=== PATIENT | female | born 1950 | race Caucasian/White ===

== ENCOUNTER 2017-03-27 19:14 | Inpatient (IN) | payer OTHER ==
[~2017-03-27] VITALS: Ht 152.4 cm; Wt 59.5 kg
[2017-03-27] MEDS ORDERED: GLIPIZIDE10 M2 PO (21:06)
[2017-03-27] MEDS ORDERED: NIFEDIPINE30 MG PO (21:06)
[2017-03-27] MEDS ORDERED: HYDRALAZINE HCL25 MG PO (21:06)
[2017-03-27] MEDS ORDERED: VITD PO (21:06)
[2017-03-27] MEDS ORDERED: OMEPRAZOLE20 M3 PO (21:07)
[2017-03-27] MEDS ORDERED: LASIX40 MG PO (21:07)
[2017-03-27] MEDS ORDERED: PERCOCET1 TA5 PO (21:07)
[2017-03-27] MEDS ORDERED: BACLOFEN10 MG PO (21:07)
[2017-03-27] MEDS ORDERED: JANUVIA100 M1 PO (21:07)
[2017-03-27 21:08] LABS: BASOPHIL % 0.1 % (0-2); PLATELET COUNT 241 x10^3mcL (130-400); RED CELL DISTRIBUTION WIDTH 14.7 % (11.5-14.5)
[2017-03-27] MEDS ORDERED: AURYXIA1 GM PO (21:08)
[2017-03-27] MEDS ORDERED: CLOPIDOGREL75 M1 PO (21:08)
[2017-03-27] MEDS ORDERED: ASPIR 8181 MG PO (21:08)
[2017-03-27] MEDS ORDERED: LYRICA50 M1 PO (21:08)
[2017-03-27] MEDS ORDERED: CARVEDILOL12.5 M1 PO (21:08)
[2017-03-27 21:15] LABS: CALCIUM 8.4 mg/dL (8.5-10.1); CARBON DIOXIDE 28.7 mmol/L (21-32); CREATININE SERUM 3.6 mg/dL (0.6-1.0); POTASSIUM SERUM 4.4 mmol/L (3.5-5.1)
[2017-03-27 21:26] LABS: BILIRUBIN TOTAL 0.4 mg/dL (0.20-1.00); T4(THYROXINE) 7.6 ug/dL (4.7-13.3); TOTAL PROTEIN, SERUM 7.3 g/dL (6.4-8.2)
[2017-03-27 21:30] LABS: ALBUMIN 3.3 g/dL (3.4-5.0); CK-MB < 0.5 ng/mL (0-3.6); CREATINE KINASE 34 U/L (26-192)
[2017-03-27 21:58] LABS: AMPHETAMINE QUAL UR NONE DETECTED (NEG <=1000)
[2017-03-27 22:08] VITALS: BP 143/56
[2017-03-27 22:13] LABS: CHOLESTEROL/HDL RATIO 7.2; MAGNESIUM 2.2 mg/dL (1.8-2.4); PHOSPHOROUS 3.1 mg/dL (2.5-4.9)
[2017-03-28] VITALS (10 sets, daily range): BP systolic 89–199; BP diastolic 33–85; Ht 152.4 cm; Wt 59.5 kg
[2017-03-28 07:29] LABS: PLATELET COUNT 198 x10^3mcL (130-400)
[2017-03-28 07:42] LABS: CALCIUM 8.2 mg/dL (8.5-10.1); CARBON DIOXIDE 27.5 mmol/L (21-32); CREATININE SERUM 3.7 mg/dL (0.6-1.0); POTASSIUM SERUM 4.9 mmol/L (3.5-5.1)
[2017-03-28 07:50] LABS: RED CELL DISTRIBUTION WIDTH 14.6 % (11.5-14.5)
[2017-03-28 10:29] LABS: BAND NEUTROPHIL 2 % (0-10); MONOCYTE 3 % (0-7); SEGMENTED NEUTROPHILS 90 % (37-75); rbc morphology (normal/abnorm) NORMAL (NORMAL)
[2017-03-28 11:37] LABS: UA SPECIFIC GRAVITY 1.015 (1.005-1.035); microscopic required? YES; urine erythrocyte 1+ (NEGATIVE)
[2017-03-28 12:25] LABS: BILIRUBIN DIRECT 0.05 mg/dL (0.0-0.2); BILIRUBIN TOTAL 0.35 mg/dL (0.20-1.00); TOTAL PROTEIN, SERUM 6.5 g/dL (6.4-8.2)
[2017-03-28 12:31] LABS: ALBUMIN 2.8 g/dL (3.4-5.0)
[2017-03-29 05:38] VITALS: BP 117/51
[2017-03-29 05:41] LABS: RAPID PLASMA REAGIN Non Reactive (Non Reactive)
[2017-03-29 06:02] LABS: PLATELET COUNT 184 x10^3mcL (130-400)
[2017-03-29 06:10] LABS: CALCIUM 8.1 mg/dL (8.5-10.1); CARBON DIOXIDE 34.9 mmol/L (21-32); CREATININE SERUM 2.2 mg/dL (0.6-1.0); POTASSIUM SERUM 3.7 mmol/L (3.5-5.1)
[2017-03-29 07:24] LABS: RED CELL DISTRIBUTION WIDTH 15.1 % (11.5-14.5)
[2017-03-29 09:30] LABS: BAND NEUTROPHIL 3 % (0-10); BASOPHIL 0 % (0-2); MONOCYTE 4 % (0-7); SEGMENTED NEUTROPHILS 86 % (37-75)
[2017-03-29 09:32] LABS: PLATELET MORPHOLOGY PLATELETS NORMAL; rbc morphology (normal/abnorm) ABNORMAL (NORMAL)
[2017-03-29 11:02] VITALS: BP 136/52
[2017-03-29 14:30] VITALS: BP 129/42
[2017-03-29 17:59] VITALS: BP 137/49
[2017-03-29 21:36] VITALS: BP 152/60
[2017-03-30 06:18] VITALS: BP 130/46; BP 130/50
[2017-03-30 06:36] LABS: BASOPHIL % 0.5 % (0-2); PLATELET COUNT 179 x10^3mcL (130-400)
[2017-03-30 06:56] LABS: RED CELL DISTRIBUTION WIDTH 15.1 % (11.5-14.5)
[2017-03-30 06:58] LABS: CALCIUM 8.3 mg/dL (8.5-10.1); CARBON DIOXIDE 30.5 mmol/L (21-32); CREATININE SERUM 3.4 mg/dL (0.6-1.0); POTASSIUM SERUM 4.2 mmol/L (3.5-5.1)
[2017-03-30 09:00] VITALS: BP 136/56
[2017-03-30 13:55] VITALS: BP 143/50
[2017-03-30 18:00] VITALS: BP 150/50
[2017-03-30 21:27] VITALS: BP 107/59
[2017-03-31] VITALS (9 sets, daily range): BP systolic 132–192; BP diastolic 43–71
[2017-03-31 07:34] LABS: BASOPHIL % 0.5 % (0-2); PLATELET COUNT 196 x10^3mcL (130-400)
[2017-03-31 07:35] LABS: CALCIUM 8.4 mg/dL (8.5-10.1); CARBON DIOXIDE 28.8 mmol/L (21-32); CREATININE SERUM 3.5 mg/dL (0.6-1.0)
[2017-03-31 07:43] LABS: RED CELL DISTRIBUTION WIDTH 14.8 % (11.5-14.5)
[2017-04-01 05:57] VITALS: BP 169/65
[2017-04-01 07:06] LABS: BASOPHIL % 0.8 % (0-2); PLATELET COUNT 219 x10^3mcL (130-400); RED CELL DISTRIBUTION WIDTH 14.1 % (11.5-14.5)
[2017-04-01 07:27] LABS: CALCIUM 8.4 mg/dL (8.5-10.1); CARBON DIOXIDE 27.3 mmol/L (21-32); CREATININE SERUM 3.4 mg/dL (0.6-1.0); MAGNESIUM 1.9 mg/dL (1.8-2.4); PHOSPHOROUS 4.9 mg/dL (2.5-4.9); POTASSIUM SERUM 4.2 mmol/L (3.5-5.1)
[2017-04-01 10:12] VITALS: BP 119/71
[2017-04-01 14:00] VITALS: BP 161/70
[2017-04-01 17:04] VITALS: BP 156/61
[2017-04-01 20:09] VITALS: BP 149/72
[2017-04-02 05:50] VITALS: BP 166/59
[2017-04-02 06:27] LABS: CALCIUM 8.5 mg/dL (8.5-10.1); CARBON DIOXIDE 28.9 mmol/L (21-32); CREATININE SERUM 3.2 mg/dL (0.6-1.0); POTASSIUM SERUM 4.2 mmol/L (3.5-5.1)
[2017-04-02 06:50] LABS: BASOPHIL % 0.6 % (0-2); PLATELET COUNT 232 x10^3mcL (130-400)
[2017-04-02 07:27] LABS: RED CELL DISTRIBUTION WIDTH 14.6 % (11.5-14.5)
[2017-04-02 08:37] VITALS: BP 180/62
[2017-04-02 14:21] VITALS: BP 137/56
[2017-04-02 16:52] VITALS: BP 140/57
[2017-04-02 21:30] VITALS: BP 159/55
[2017-04-03 05:48] VITALS: BP 148/57
[2017-04-03 06:38] LABS: CALCIUM 7.9 mg/dL (8.5-10.1); CREATININE SERUM 3.4 mg/dL (0.6-1.0); POTASSIUM SERUM 4.5 mmol/L (3.5-5.1)
[2017-04-03 06:39] LABS: BASOPHIL % 0.4 % (0-2); PLATELET COUNT 247 x10^3mcL (130-400)
[2017-04-03 07:09] LABS: RED CELL DISTRIBUTION WIDTH 14.8 % (11.5-14.5)
[2017-04-03 09:59] VITALS: BP 148/57
[2017-04-03 11:20] VITALS: BP 158/59
[2017-04-03] MEDS ORDERED: FERROUS GLUCON324 M2 PO (12:42)
[2017-04-03] MEDS ORDERED: PERCOCET1 TA5 PO (12:43)
[2017-04-03] MEDS ORDERED: COLACE100 MG PO (12:43)
[2017-04-03] MEDS ORDERED: MULTIVITAMIN1 SGL PO (12:47)
[2017-04-03 12:56] VITALS: BP 158/59
== END 2017-04-03 16:57 | disposition home or self-care (01) | DRG 177 ==
LOC: ED 19:14 → DU 20:43
PROVIDERS: Emergency Medicine; Internal Medicine Nephrology; Student in an Organized Health Care Education/Training Program; ADMIT Family Medicine
DX: J69.0 Pneumonitis due to inhalation of food and vomit (principal); N18.6 End stage renal disease; I50.43 Acute on chronic combined systolic (congestive) and diastolic (congestive) heart failure; N17.0 Acute kidney failure with tubular necrosis; J96.00 Acute respiratory failure, unspecified whether with hypoxia or hypercapnia; J44.1 Chronic obstructive pulmonary disease with (acute) exacerbation; I13.2 Hypertensive heart and chronic kidney disease with heart failure and with stage 5 chronic kidney disease, or end stage renal disease; E44.0 Moderate protein-calorie malnutrition; A08.4 Viral intestinal infection, unspecified; E11.22 Type 2 diabetes mellitus with diabetic chronic kidney disease; E11.51 Type 2 diabetes mellitus with diabetic peripheral angiopathy without gangrene; E11.40 Type 2 diabetes mellitus with diabetic neuropathy, unspecified; E11.65 Type 2 diabetes mellitus with hyperglycemia; I25.10 Atherosclerotic heart disease of native coronary artery without angina pectoris; E78.5 Hyperlipidemia, unspecified; I25.2 Old myocardial infarction; Z99.2 Dependence on renal dialysis; Z99.81 Dependence on supplemental oxygen; Z95.5 Presence of coronary angioplasty implant and graft; Z79.84 Long term (current) use of oral hypoglycemic drugs; Z68.25 Body mass index [BMI] 25.0-25.9, adult
CPT/HCPCS: 36600; 82962; 83880; 94150; J1644; J1940; J1956; J2405; J3490; J7030; J7040; J7620; Q0092